=== PATIENT | female | born 2000 | race Caucasian/White ===

== ENCOUNTER → 2022-01-22 | Outpatient (CLI) | payer BC ==
[2022-01-22 12:26] LABS: BASO # 0.02 K/mm3 (0.02-0.10); EOS # 0.07 K/mm3 (0.04-0.40); EOS % 0.8 % (1.0-5.0); HEMATOCRIT 38.8 % (37.0-47.0); HEMOGLOBIN 12.8 g/dL (12.5-16.0); LYMPH# 1.93 K/mm3 (1.50-4.00); MEAN CELL VOLUME 83 fl (78-100); MEAN CORPUSCULAR HEMOGLOBIN 28 pg (27-31); MEAN CORPUSCULAR HGB CONC 33 g/dL (33-37); MEAN PLATELET VOLUME 10.4 fl (7.4-10.4); MONO # 0.44 K/mm3 (0.20-0.80); NEU # 6.12 K/mm3 (1.40-6.50); PLATELET COUNT 304 K/mm3 (130-400); RED BLOOD COUNT 4.65 M/mm3 (4.10-5.30); RED CELL DISTRIBUTION WIDTH 12.7 % (11.5-14.5); WHITE BLOOD COUNT 8.6 K/mm3 (4.8-10.8)
[2022-01-22 12:46] LABS: ALBUMIN 3.9 g/dL (3.5-5.0); POTASSIUM 4.2 mmol/L (3.5-5.1); SODIUM 139 mmol/L (136-145)
[2022-01-22 12:47] LABS: CALCIUM 9.5 mg/dL (8.3-10.5)
[2022-01-22 12:48] LABS: GLUCOSE 102 mg/dL (65-105); TOTAL PROTEIN 7.6 g/dL (6.4-8.3)
[2022-01-22 12:49] LABS: CARBON DIOXIDE 21 mmol/L (22-29)
[2022-01-22 12:50] LABS: TOTAL BILIRUBIN 0.2 mg/dL (0.2-1.2)
[2022-01-22 12:54] LABS: AST-SGOT 25 U/L (5-34)
[2022-01-22 12:55] LABS: ALT/SGPT 33 U/L (0-55)
== END ==
LOC: LAB 12:10
DX: Z00.00 Encounter for general adult medical examination without abnormal findings (principal); Z13.228 Encounter for screening for other metabolic disorders; G43.909 Migraine, unspecified, not intractable, without status migrainosus

== ENCOUNTER → 2022-04-15 | Outpatient (CLI) | payer BC | LOC: RAD 15:08 | DX: G43.711 Chronic migraine without aura, intractable, with status migrainosus (principal) ==